=== PATIENT | male | born 1945 | race Caucasian/White ===

== ENCOUNTER 2024-08-28 08:30 | Outpatient (RCR) | payer MEDICARE, SELFPAY ==
[2024-08-28] VITALS (12 sets, daily range): BP systolic 125–155; BP diastolic 66–90; PULSE 88–102; RESP 14–20; TEMP 35.8–37; O2SAT 93–99
[2024-08-28] MEDS: SODIUM CHLORIDE 0.9 % (FLUSH) 10 ML SYRINGE IVF ×2 (10:30→15:43)
[2024-08-28] MEDS: 0.9 % SODIUM CHLORIDE 500 ML 250 ML IV (10:30)
[2024-08-28] MEDS: FUROSEMIDE 10 MG/ML inj 20 MG IVP ×2 (12:07→15:05)
[2024-08-28] MEDS: HEPARIN 500 UNIT/5 ML SYRINGE IVF (15:43)
== END 2025-02-23 23:59 | disposition home or self-care (01) ==
LOC: CCIC 08:30
PROVIDERS: Visit Provider Clinical Nurse Specialist
DX: D64.9 Anemia, unspecified (principal)
CPT/HCPCS: 36415; 36430; 36591; 86850; 86900; 86901; 86922; 96374; J1642; J1938; J7030; P9016